=== PATIENT | male | born 2000 | race Two or more races ===

== ENCOUNTER 2020-03-21 21:49 | Emergency (ER) | payer OTHER ==
[~2020-03-21] VITALS: Ht 167.6 cm; Wt 62.9 kg
--- NOTE | 2020-03-21 21:57 | PHYS DOC ---
Adult General HPI HPI Patient is an otherwise healthy 19-year-old male who presents with ankle pain. States he was at work last week, and inverted/twisted it. States it hurt for a day or 2 but then got better. States that yesterday he did the same thing and has some swelling on the outside of his ankle. States it is tender, 3 out of 10, dull and achy with no radiation. States he is able to walk without issue but just want to get it checked, because they know he twisted it at work and would like him to check to make sure is not broken. Denies any other injuries. Review of Systems Review of Systems Review of systems otherwise unremarkable except for noted in HPI. Physical Exam Physical Exam Constitutional: Well developed, well nourished, no acute distress, non-toxic appearance. [] Cardiovascular:Heart rate normal Skin: Warm, dry, no erythema, no rash. [] Back: No tenderness Extremities: Patient has mild tenderness and swelling with no erythema or deformity at and around the lateral malleolus of the right lower extremity. Range of motion normal. Neurovascular exam intact. Neurologic: Alert and oriented X 3, normal motor function, normal sensory function, no focal deficits noted. [] Psychologic: Affect normal, judgement normal, mood normal. [] EKG EKG [] Radiology/Procedures Radiology/Procedures [] IMPRESSION: No acute osseous abnormality. Electronically signed by: Cindy Vega MD (03/21/2020 10:23 PM) [facility] Heart Score Risk Factors: Risk Factors: DM, Current or recent (<one month) smoker, HTN, HLP, family his tory of CAD, obesity. Risk Scores: Risk Factors: DM, Current or recent (<one month) smoker, HTN, HLP, family history of CAD, obesity. Course & Med Decision Making Course & Med Decision Making Patient is a otherwise healthy 19-year-old male who presents with ankle pain Vital signs not concerning. Physical exam noted above. Given ibuprofen and ice pack. Imaging with no acute osseous abnormality. Patient placed in an Rafael wrap for support and pain relief. Advised to continue Tylenol and ibuprofen and as well as ice as needed for pain control. Advised ambulation as tolerated. Advised to follow-up with primary care physician to discuss follow-up visit. Advised to come back to the emergency department with any new or concerning symptoms. Patient grateful, verbalized understanding and agreed with plan of discharge [] Dragon Disclaimer Dragon Disclaimer This electronic medical record was generated, in whole or in part, using a voice recognition dictation system. Departure Departure: Impression: Primary Impression: Ankle pain Disposition: 01 DC HOME SELF CARE/HOMELESS Condition: IMPROVED Referrals: NON,STAFF (PCP) Patient Instructions: Ankle Pain, RICE - Routine Care for Injuries Additional Instructions: Please read all the attached information. Please continue to use Tylenol, ibuprofen and ice as needed for pain control. Also use your Rafael bandage as instructed for stabilization and pain control. Please ambulate as tolerated. Please follow-up with your primary care physician to update on ED visit and discuss need for post ER follow-up visit. Please come back to the ED with new or concerning symptoms. MARSHA GUTIERRES MD Mar 21, 2020 21:57
[2020-03-21] MEDS ORDERED: IBUPROFEN 600 MG TABLET. PO ONE (22:15)
--- NOTE | 2020-03-21 22:25 | RAD ---
Exam: Right ankle 3 views INDICATION: Trauma, right ankle pain TECHNIQUE: Frontal, lateral and oblique views of the right ankle Comparisons: None FINDINGS: Bone mineralization is normal. No acute or healed fractures. Soft tissues are unremarkable. Joint spa melissa are well-maintained. IMPRESSION: No acute osseous abnormality. Electronically signed by: Cindy Vega MD (03/21/2020 10:23 PM) [facility]
[2020-03-21 22:45] VITALS: BP 124/68
== END 2020-03-21 22:45 | disposition home or self-care (01) ==
LOC: ER 21:49
DX: M25.571 Pain in right ankle and joints of right foot (principal); R22.31 Localized swelling, mass and lump, right upper limb
CPT/HCPCS: 73610; 99283

== ENCOUNTER 2020-03-26 23:55 | Emergency (ER) | payer OTHER ==
[~2020-03-26] VITALS: Ht 167.6 cm; Wt 59.0 kg
[2020-03-27] VITALS: BP 124/75
--- NOTE | 2020-03-27 00:08 | PHYS DOC ---
Past History Past Medical History: Other Additional Past Medical Histor: ADHD; ASPERGERS Additional Past Surgical Histo: RT HIP Smoking: Cigarettes Additional Smoking Information: Vapes Alcohol Use: None Drug Use: Marijuana General Adult EDM: Chief Complaint: HEAD INJURY/TRAUMA HPI: HPI: Patient is a 19-year-old male who presents to the ED after a head injury. Patient was at work a piece of metal hit his forehead, at 2030, leaving a superficial abrasion on his left forehead. He then sustained another head injury at 2100 on the side of his left head. He felt dizzy after the incident which has resolved since. He had one episode of nausea but no vomiting at 0. He now has a headache that is 5/10 in intensity. He denies any LOC or confusion. He reports no history of prior concussions. NO chest pain or SOB. No other complaints or symptoms at this time. Review of Systems: Review of Systems: Constitutional: Denies fever or chills Eyes: Denies redness or eye pain HENT: Denies nasal congestion or sore throat Respiratory: Denies cough or shortness of breath Cardiovascular: Denies chest pain or palpitations GI: Denies abdominal pain, nausea, or vomiting : Denies dysuria or hematuria Musculoskeletal: Denies back pain or joint pain Integument: Denies laceration; reports abrasion Neurologic: positive for headache but no focal weakness or sensory changes Complete systems were reviewed and found to be within normal limits, except as documented in this note. Allergies: Allergies: Allergies Coded Allergies Type Severity Reaction Last Updated Verified risperidone Allergy Intermediate 03/21/20 Yes Uncoded Allergies Type Severity Reaction Last Updated Verified FOLCIN Allergy Unknown 03/21/20 Physical Exam: PE: Constitutional: Well developed, well nourished, no acute distress, non-toxic appearance HENT: Normocephalic, atraumatic Eyes: PERRL, EOMI, conjunctiva normal, no discharge Neck: Normal range of motion, no tenderness, supple Lungs & Thorax: No respiratory distress, equal chest rise and fall Abdomen: Soft, no tenderness Skin: Warm, dry, no erythema, no rash. Small .5 cm abrasion to left forehead. Back: No tenderness, no CVA tenderness Extremities: No tenderness, ROM intact, no edema Neurologic: Alert and oriented X 3, normal motor function, normal sensory f unction, no focal deficits noted Psychologic: Affect normal, judgment normal Course & Med Decision Making: Course & Med Decision Making Patient is a 19 year old male that presents to the ED for head injury. Based on history and physical exam no imaging is warranted at this time. Gave return precautions. Will provide a work note. Counseled on symptomatic treatment. Patient stable for discharge with outpatient follow-up with PCP. Discussed findings and plan with patient, who acknowledges understanding and agreement. Dragon Disclaimer: Dragon Disclaimer: This electronic medical record was generated, in whole or in part, using a voice recognition dictation system. Departure Departure: Impression: Primary Impression: Head contusion Qualified Codes: S00.03XA - Contusion of scalp, initial encounter Disposition: 01 DC HOME SELF CARE/HOMELESS Condition: STABLE Referrals: PCP,UNKNOWN (PCP) Patient Instructions: Facial or Scalp Contusion, [id number] Additional Instructions: ICE area of discomfort 20 min on then leave off next 20 mins. Repeat several times daily as needed. Take over the counter Tylenol and/or Ibuprofen for pain or discomfort. KILEY ROE DO Mar 27, 2020 00:08
== END 2020-03-27 00:20 | disposition home or self-care (01) ==
LOC: ER 23:55
DX: S00.03XA Contusion of scalp, initial encounter (principal); F17.220 Nicotine dependence, chewing tobacco, uncomplicated; Z88.8 Allergy status to other drugs, medicaments and biological substances; W22.8XXA Striking against or struck by other objects, initial encounter; Y93.89 Activity, other specified; Y92.89 Other specified places as the place of occurrence of the external cause; Y99.8 Other external cause status
CPT/HCPCS: 99282

== ENCOUNTER 2020-11-13 17:13 | Emergency (ER) | payer OTHER ==
[~2020-11-13] VITALS: Ht 172.7 cm; Wt 70.9 kg
[2020-11-13 17:28] VITALS: BP 147/95
[2020-11-13] MEDS ORDERED: MUPI22OI2 TP (17:37)
--- NOTE | 2020-11-13 17:39 | PHYS DOC ---
Past History Past Medical History: Other Additional Past Medical Histor: ADHD; ASPERGERS (HECTOR RICO APRN) Additional Past Surgical Histo: RT HIP (HECTOR RICO APRN) Smoking: Cigarettes Alcohol Use: Occasionally Drug Use: Marijuana (HECTOR RICO APRN) General Adult EDM: Chief Complaint: BURN/SMOKE INHALATION HPI: HPI: Patient is a 20-year-old male being seen in the ER for barragan to bilateral forearms from welding that occurred yesterday. Patient denies any fevers, decreased range of motion or decreased sensation in extremities. He states that his tetanus shot is up-to-date. Patient denies any shortness of breath or difficulty swallowing. (HECTOR RICO APRN) Review of Systems: Review of Systems: 14 body systems of the review of systems have been reviewed. See HPI for pertinent positive and negative responses, otherwise all other systems are negative, nonpertinent or noncontributory (HECTOR RICO APRN) Allergies: Allergies: Allergies Coded Allergies Type Severity Reaction Last Updated Verified risperidone Allergy Intermediate 03/21/20 Yes Uncoded Allergies Type Severity Reaction Last Updated Verified FOLCIN Allergy Unknown 03/21/20 (HECTOR RICO APRN) Physical Exam: PE: Constitutional: Well developed, well nourished, no acute distress, non-toxic appearance. [] HENT: Normocephalic, atraumatic Eyes: PERRL, EOMI, conjunctiva normal, no discharge. [] Neck: Normal range of motion, no stridor Cardiovascular: Normal peripheral perfusion Lungs & Thorax: Normal work of breathing, no tachypnea Abdomen: Soft, no tenderness Skin: Warm, dry, no rash, erythema noted to bilateral forearms consistent with a superficial first-degree burn, neurovascularly intact, range of motion intact Back: Normal range of motion Extremities: No tenderness, no cyanosis, no clubbing, ROM intact, no edema. [] Neurologic: Alert and oriented X 3, normal motor function, normal sensory function, no focal deficits noted. [] Psychologic: Affect normal, judgement normal, mood normal. [] (HECTOR RICO APRN) EKG: EKG: [] (HECTOR RICO APRN) Radiology/Procedures: Radiology/Procedures: [] (HECTOR RICO APRN) Heart Score: C/O Chest Pain: No Risk Factors: Risk Factors: DM, Current or recent (<one month) smoker, HTN, HLP, family history of CAD, obesity. Risk Scores: Score 0 - 3: 2.5% MACE over next 6 weeks - Discharge Home Score 4 - 6: 20.3% MACE over next 6 weeks - Admit for Clinical Observation Score 7 - 10: 72.7% MACE over next 6 weeks - Early Invasive Strategies (HECTOR RICO APRN) Course & Med Decision Making: Course & Med Decision Making Pertinent Labs and Imaging studies reviewed. (See chart for details) [] Patient is a 20-year-old male being seen in the ER for superficial first- degree barragan to bilateral forearms after burning himself while welding yesterday. Patient will be discharged home with mupirocin ointment that he can apply to prevent infection. Patient advised to take Tylenol and ibuprofen at home for pain. He was also advised to follow-up with his primary care provider. I discussed with patient all findings and diagnostic testing as well as the need to follow-up with PCP for further evaluation and treatment or return to the ER if any new or worsening symptoms. Strict return precautions were also discussed at length. Patient voiced understanding and agreement with the plan. Patient is hemodynamically stable at the time of disposition. (HECTOR RICO APRN) Course & Med Decision Making I was the Attending physician on the above date of service of this patient. This patient was evaluated, examined, treated, and dispositioned from the emergency department by the mid-level practitioner. Although I was working at the time , no assistance was requested. Electronically signed, Rajni Shearer DO (RAJNI SHEARER DO) Royce Disclaimer: Royce Disclaimer: This electronic medical record was generated, in whole or in part, using a voice recognition dictation system. (HECTOR RICO APRN) Departure Departure: Impression: Primary Impression: Burn Disposition: 01 HOME / SELF CARE / HOMELESS Condition: GOOD Referrals: PCP,NAILA (PCP) Patient Instructions: Burn Care Additional Instructions: You were seen in the ER today for barragan to your forearms from welding. You can apply mupirocin ointment which will help in the healing process and prevent infection. Please take Tylenol and ibuprofen for pain at home. Please follow- up with your primary care provider tomorrow regarding your ER visit. If you develop worsening of your pain/redness/swelling, high fevers refractory to treatment, or decreased mobility or sensation in your extremities please return to the ER. EMERGENCY DEPARTMENT GENERAL DISCHARGE INSTRUCTIONS Thank you for coming to [facility] (ED) today and trusting us with you care. We trust that you had a positivie experience in our Emergency Department. If you wish to speak to the department management, you may call the director at [phone]. YOUR FOLLOW UP INSTRUCTIONS ARE FOLLOWS: 1. Do you have a private Doctor? If you do not have a private doctor, please ask for a resource list of physicians or clinics that may be able to assist you with follow up care. 2. The Emergency Physician has interpreted your x-rays. The X-Ray specialist will also review them. If there is a change in the findings, you will be notified in 48 hours when at all possible. 3. A lab test or culture has been done, your results will be reviewed and you will be notified if you need a change in treatment. ADDITIONAL INSTRUCTIONS AND INFORMATION: 1. Your care today has been supervised by a physician who is specially trained in emergency care. Many problems require more than one evaluation for a complete diagnosis and treatment. We recommend that you schedule your follow up appointment as recommended to ensure complete treatment of you illness or injury. If you are unable to obtain follow up care and continue to have a problem, or if your condition worsens, we recommend that you return to the ED. 2. We are not able to safely determine your condition over the phone nor are we able to give sound medical advice over the phone. For these safety reasons, if you call for medical advice we will ask you to come to the ED for further evaluation. 3. If you have any questions regarding these discharge instructions please call the ED at [phone]. SAFETY INFORMATION: In the interest of safety, wellness, and injury prevention; we encourage you to wear your sealbelt, if you smoke; quite smoking, and we encourage family to use a protective helmet for bicycling and other sporting events that present an increased risk for head injury. IF YOUR SYMPTOMS WORSEN OR NEW SYMPTOMS DEVELOP, OR YOU HAVE CONCERNS ABOUT YOUR CONDITION; OR IF YOUR CONDITION WORSENS WHILE YOU ARE WAITING FOR YOUR FOLLOW UP APPOINTMENT; EITHER CONTACT YOUR PRIMARY CARE DOCTOR, THE PHYSICIAN WHOSE NAME AND NUMBER YOU WERE GIVEN, OR RETURN TO THE ED IMMEDIATELY. Scripts Mupirocin (MUPIROCIN) 22 Gm Oint...g. 1 MURPHY TP TID for burn for 10 Days, #22 GM 0 Refills Prov: HECTOR RICO APRN 11/13/20 HECTOR RICO APRN Nov 13, 2020 17:39 RAJNI SHEARER DO Nov 16, 2020 06:33
== END 2020-11-13 18:07 | disposition home or self-care (01) ==
LOC: ER 17:13
DX: T22.112A Burn of first degree of left forearm, initial encounter (principal); T22.111A Burn of first degree of right forearm, initial encounter; F17.210 Nicotine dependence, cigarettes, uncomplicated; Z88.8 Allergy status to other drugs, medicaments and biological substances; X17.XXXA Contact with hot engines, machinery and tools, initial encounter; Y93.89 Activity, other specified; Y92.89 Other specified places as the place of occurrence of the external cause; Y99.8 Other external cause status
CPT/HCPCS: 99283

== ENCOUNTER 2021-01-11 00:57 | Emergency (ER) | payer OTHER ==
[~2021-01-11] VITALS: Ht 172.7 cm; Wt 69.7 kg
[~2021-01-11 00:57] MED LIST: MUPI22OI2 TP
[2021-01-11] MEDS ORDERED: FLUORESCEIN 1MG EYE STRIP. ONE (01:04)
[2021-01-11] MEDS ORDERED: TETRACAINE 0.5% OPHTH SOLUTION 4ML BOTTLE. ONE (01:04)
[2021-01-11] MEDS ORDERED: CIPROFLOXACIN 0.3% OPHTH SOLUTION 2.5ML BOTTLE. OU ONE (01:15)
[2021-01-11] MEDS ORDERED: ACETAMINOPHEN 500 MG TABLET PO ONE (01:15)
[2021-01-11] MEDS ORDERED: IBUPROFEN 600 MG TABLET. PO ONE (01:15)
[2021-01-11] MEDS ORDERED: HYDROmorphone PF 2 MG/ML VIAL IM ONE (01:15)
[2021-01-11 01:22] VITALS: BP 138/81
[2021-01-11] MEDS ORDERED: HYDR-2155 PO (01:25)
[2021-01-11] MEDS ORDERED: CIPR5DRO EACHEYE (01:25)
--- NOTE | 2021-01-11 01:26 | PHYS DOC ---
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 States that he was welding in his shield tenting drop-down for second while he was welding and looked straight into the flash. States that since then he has had some eye redness and watering. Denies any changes in vision. States he has a small amount of pain, 3 out of 10, sharp and burning. States he had not taken any medications for this. States he does have an mounter [facility]ones which she has an appointment for in 10 days for his normal appointment. Review of Systems Review of Systems Review of systems otherwise unremarkable except noted in HPI Allergies Allergies Allergies Coded Allergies Type Severity Reaction Last Updated Verified risperidone Allergy Intermediate 03/21/20 Yes Uncoded Allergies Type Severity Reaction Last Updated Verified FOLCIN Allergy Unknown 03/21/20 Physical Exam Physical Exam Constitutional: Well developed, well nourished, no acute distress, non-toxic appearance. [] HENT: Normocephalic, atraumatic, bilateral external ears normal, oropharynx moist, no oral exudates, nose normal. [] Eyes: PERRLA, EOMI, red, watery discharge, 2020 bilaterally with glasses on, fluorescein exam with scant white punctate lesions suggestive of keratitis. [] Neck: Normal range of motion, no tenderness, supple, no stridor. [] Cardiovascular:Heart rate regular rhythm, no murmur [] Lungs & Thorax: No respiratory distress Neurologic: Alert and oriented X 3, normal motor function, normal sensory function, no focal deficits noted. [] Psychologic: Affect normal, judgement normal, mood normal. [] EKG EKG [] Radiology/Procedures Radiology/Procedures [] Heart Score C/O Chest Pain: No Risk Factors: Risk Factors: DM, Current or recent (<one month) smoker, HTN, HLP, family history of CAD, obesity. Risk Scores: Risk Factors: DM, Current or recent (<one month) smoker, HTN, HLP, family history of CAD, obesity. Course & Med Decision Making Course & Med Decision Making Patient is a 20-year-old male presents with a chief complaint of watery discharge, eye redness and pain Vital signs not concerning. Physical exam noted above. Started on Cipro eyedrops for UV keratitis. Given pain medication. Discussed diagnosis with patient and family. Advised to use eyedrops as prescribed. Discussed pain management at home. Advised to call his mounter [facility]ones first thing Wednesday morning to discuss ED visit and see if he can get in as soon as possible for reevaluation instead of waiting till his upcoming appointment. Gave strict return precautions to the ED. Gave work note for the next couple days and advised to stay home in a low lit area. Patient grateful, verbalized understanding agree with plan of discharge. [] Dragon Disclaimer Dragon Disclaimer This electronic medical record was generated, in whole or in part, using a voice recognition dictation system. Departure Departure: Impression: Primary Impression: UV keratitis Disposition: HOME / SELF CARE / HOMELESS Condition: IMPROVED Referrals: PCP,NAILA (PCP) GERALD NAIDU MD Patient Instructions: Eye - Ultraviolet Keratitis Additional Instructions: Thank you for coming into the emergency department tonight and allowing us to take care of you. Please read the attached information carefully to go back over things we discussed. Please be sure to use your eyedrops as prescribed. You can also use Tylenol, ibuprofen at home as needed for control. Please call your mounter sousaphones on Wednesday to update on ED visit and see if you get an appointment as soon as possible for reevaluation. Please come back to the ED with new or concerning symptoms as we discussed. Scripts Hydrocodone Bit/Acetaminophen (HYDROCODONE-APAP 5-325 ) 1 Each Tablet 1 TAB PO TID PRN for eye pain for 3 Days, #9 TAB 0 Refills Prov: MARSHA GUTIERRES MD 01/11/21 Ciprofloxacin Hcl (CILOXAN) 5 Ml Drops 1 DROP EACHEYE QID for keratitis for 7 Days, #5 ML Prov: MARSHA GUTIERRES MD 01/11/21 MARSHA GUTIERRES MD Jan 11, 2021 01:26
== END 2021-01-11 01:54 | disposition home or self-care (01) ==
LOC: ER 00:57
DX: H16.8 Other keratitis (principal); F17.210 Nicotine dependence, cigarettes, uncomplicated; Z88.8 Allergy status to other drugs, medicaments and biological substances
CPT/HCPCS: 96372; 99284; J1170